=== PATIENT | female | born 1990 | race Caucasian/White ===

== ENCOUNTER 2018-12-02 12:17 | Inpatient (IN) | payer OTHER ==
[~2018-12-02] VITALS: Ht 162.6 cm; Wt 95.0 kg
[~2018-12-02 12:17] MED LIST: CALC500O PO; FERR325T5 PO; PREN-93 PO
[2018-12-02 12:53] VITALS: Ht 162.6 cm; Wt 95.0 kg
--- NOTE | 2018-12-02 14:13 | HP ---
Date/Time of Note Date/Time of Note DATE: 12/02/18 TIME: 14:11 OB - History Hx of Present Free Text/Dictation 28-year-old female 2 para 1 at 40 weeks gestation admitted for elective induction Last Menstrual Period: Feb 25, 2018 Estimated Due Date: Dec 02, 2018 : 2 Para: 1 Care: Good Care Ultrasounds: Normal mid trimester US Obstetrical Complications: None Medical Complications: None Past Family/Social History * Past Medical, Surgical, Family and Obstetric Histories reviewed from chart. Blood Type: O+ Rubella: immune RPR/VDRL: Negative GBS Status: Negative HBsAG: Negative OB Admission Exam Physical Exam HEENT: WNL Heart: Rhythm Normal Lungs: Clear, Equal Abdomen: WNL Extremities: Normal Reflexes: Normal Cervical Dilatation: Fingertip Effacement: 0% Station: -3 Membranes: Intact Heart Rate: 140's Accelerations: Accelerations Present Decelerations: No Decelerations Varibility: Marked Contractions on Admission: None OB Assessment/Plan Reason for admission: induction of labor Other Assessment: 40 weeks gestation Admitted for elective induction Other plan: Start induction using Cytotec EVETTE NEUMANN MD Dec 02, 2018 14:13
--- NOTE | 2018-12-02 14:43 | TRIAGE ---
OB Triage Datetime Report Generated by CPN: 12/02/2018 14:43 Datetime: 12/02/2018 14:01 Stage of : OB Triage Datetime: 12/02/2018 14:00 Stage of : OB Triage Labor Evaluation Frequency: X1 Monitor Mode: External Quality: Mild Pattern: Normal: <= 5 Contractions in 10 Minutes Resting Tone Stamps: Relaxed Heart Rate FHR Baseline Rate: 125 Monitor Mode: External US Variability: Moderate 6-25 bpm Accelerations: 15X15 Decelerations: None Category: Category I Pain Assessment Pain Scale: 3 Pain Presence: Chronic Pain Type: Sharp Pain Location: Perineum Pain Goal: 6 Exam By: JENIFER CARDONA Membrane Status: Intact Datetime: 12/02/2018 12:50 Stage of : OB Triage Labor Evaluation Frequency: X1 Monitor Mode: External Quality: Mild Pattern: Normal: <= 5 Contractions in 10 Minutes Resting Tone Stamps: Relaxed Heart Rate FHR Baseline Rate: 125 Monitor Mode: External US Variability: Moderate 6-25 bpm Accelerations: 15X15 Decelerations: None Category: Category I Pain Assessment Pain Scale: 3 Pain Presence: Chronic Pain Type: Sharp Pain Location: Perineum Pain Goal: 6 Vaginal Exam Dilatation (cms): 0.0 Effacement (%): 0 Station: -3 Exam By: JENIFER CARDONA Membrane Status: Intact Datetime: 12/02/2018 12:29 Vaginal Exam Dilatation (cms): 0.5 Effacement (%): 0 Station: -4 Exam By: JENIFER CARDONA Vaginal Bleeding: None Cervix, Consistency: Soft Cervix, Position: Midposition Presentation 'A': Cephalic Datetime: 12/02/2018 12:23 Stage of : OB Triage Assessment Type: Triage Maternal Assessment Level of Consciousness: Fully Conscious DTR's/Clonus: DTRs 2+; No Clonus Headache: Denies Blurred Vision: No Respiratory Effort: Unlabored; Regular Rhythm; Equal Expansion Breath Sounds, Left: Clear and Equal Breath Sounds, Right: Clear and Equal Nausea/Vomiting: Denies RUQ Epigastric Pain: Denies Lower Extremities Edema: None Degree: None Upper Extremities Edema: None Degree: None Facial Edema: None Fall Risk Assessment History of Falling: (0) No Secondary Diagnosis: (0) No Ambulatory Aid: (0) Bedrest/Nurse Assist IV Therapy: (0) No Gait: (0) Normal/Bedrest/Immobile Mental Status: (0) Oriented to Own Ability Fall Score: 0 Fall Risk Score Definition: No Risk: No action required Datetime: 12/02/2018 12:13 Time of Arrival: 12/02/2018 14:01 EGA: 40.0 Arrived By: Ambulatory Arrived From: Office Chief Complaint: PT CAME IN FROM [facility] OFFICE FOR NST AND BPP FOR POST DATES AND PT C/O VAGINAL PRESS URE Movement: Present Contractions: Denies/Absent Rupture of Membranes: Denies Vaginal Discharge: Denies Recent Sexual Intercouse: Denies Abdominal Trauma: Not Applicable Additional Patient Complaints: NONE Time Provider Notified: 12/02/2018 12:25 Provider Notified: ZO Initial Plan: NST, BPP, EFW Datetime: 10/31/2018 11:17 Pattern: Normal: <= 5 Contractions in 10 Minutes Resting Tone Stamps: Relaxed Contraction Comments: MILD IRRITABILITY Heart Rate FHR Baseline Rate: 125 Monitor Mode: External US FHR Baseline Changes: No Baseline Change Variability: Moderate 6-25 bpm Accelerations: 15X15 Decelerations: None Category: Category I Datetime: 10/31/2018 09:49 Stage of : OB Triage Assessment Type: Triage Maternal Assessment Level of Consciousness: Fully Conscious DTR's/Clonus: DTRs 2+; No Clonus Headache: Denies Blurred Vision: No Respiratory Effort: Unlabored; Regular Rhythm; Equal Expansion Breath Sounds, Left: Clear and Equal Breath Sounds, Right: Clear and Equal Nausea/Vomiting: Denies RUQ Epigastric Pain: Denies Lower Extremities Edema: None Upper Extremities Edema: None Facial Edema: None Temperature Route: Axillary Fall Risk Assessment History of Falling: (0) No Secondary Diagnosis: (0) No Ambulatory Aid: (0) Bedrest/Nurse Assist IV Therapy: (0) No Gait: (0) Normal/Bedrest/Immobile Mental Status: (0) Oriented to Own Ability Fall Score: 0 Fall Risk Score Definition: No Risk: No action required Pain Assessment Pain Scale: 0 Pain Presence: None/Denies Pain Type: N/A Pain Goal: 7 Datetime: 10/31/2018 09:48 EGA: 35.3 Datetime: 10/31/2018 09:44 Stage of : OB Triage Time of Arrival: 10/31/2018 09:26 Arrived By: Ambulatory Arrived From: Office Chief Complaint: Fall yesterday-pain on lower back and sacral area Movement: Present Contractions: Denies/Absent Rupture of Membranes: Denies Vaginal Bleeding: None Vaginal Discharge: Denies Recent Sexual Intercouse: Denies Abdominal Trauma: Fall Patient Complaints: Back Pain Initial Plan: NST, BPP Temperature Route: Oral Datetime: 10/31/2018 09:42 Stage of : OB Triage
[2018-12-02] MEDS: LACTATED RINGER'S 1,000 ML IV SCH (18:29)
[2018-12-02] MEDS ORDERED: LIDOCAINE 1% (MPF) 30 ML INJ INJ PRN (18:30)
[2018-12-02] MEDS ORDERED: BUTORPHANOL 2 MG INJ IV PRN (18:30)
[2018-12-02] MEDS ORDERED: MISOPROSTOL 50 MCG CAPSULE VAG ONE (18:30)
[2018-12-02] MEDS ORDERED: OXYTOCIN 30 UNITS/LR 500 ML IV PRN (18:30)
[2018-12-02] MEDS ORDERED: OXYTOCIN 30 UNITS/LR 500 ML IV SCH ×3 (18:30)
[2018-12-02] MEDS ORDERED: METHYLERGONOVINE 0.2 MG INJ IM PRN (18:30)
[2018-12-02] MEDS ORDERED: CARBOPROST 250 MCG INJ IM PRN (18:30)
[2018-12-02] MEDS ORDERED: MISOPROSTOL 200 MCG TAB PR PRN (18:30)
[2018-12-02] MEDS: MISOPROSTOL 50 MCG CAPSULE PO SCH ×2 (18:52→22:55)
[2018-12-03] MEDS: LACTATED RINGER'S 1,000 ML IV SCH ×3 (01:15→03:13)
--- NOTE | 2018-12-03 02:16 | PREAC ---
Date/Time of Note Date/Time of Note DATE: 12/03/18 TIME: 02:15 Anesthesia Eval and Record Evaluation Time Pre-Procedure Interview DATE: 12/03/18 TIME: 02:15 Age 28 Sex female NPO: 8 hrs Preoperative diagnosis intrauterine Planned procedure labor epidural Past Medical History Past Medical History: Includes : : (2), Para: (1), Gestational age: (40.1) Surgery & Anesthesia Issues No known issue Meds Anticoagulation: No Beta Jolynn within 24 hr: No Reason Beta Jolynn not given: Pt. not on B-Jolynn Reported Medications Calcium Carbonate (Calcium Carbonate) 500 Mg/5 Ml Oral.susp, 500 MG PO ONCE 10/31/18 Ferrous Sulfate (Ferrous Sulfate) 325 Mg Tablet.dr, 325 MG PO 10/31/18 Vit No.124/Iron/FA ( Vitamin Tablet) 1 Each Tablet, 1 EACH PO, TAB 10/31/18 Current Medications Lactated Ringer's 1,000 ml @ 125 mls/hr Q8H IV Last administered on 12/03/18at 01:15; Admin Dose 125 MLS/HR; Start 12/02/18 at 18:18 Butorphanol Tartrate (Stadol) 2 mg Q2H PRN IV .PAIN; Start 12/02/18 at 18:30 Lidocaine (Xylocaine 1% (Mpf)) 30 ml ONCE PRN INJ .EPISIOTOMY; Start 12/02/18 at 18:30 Oxytocin/Lactated Ringer's 500 ml @ 500 mls/hr ONCE POST IV ; Start 12/02/18 at 18:30 Oxytocin/Lactated Ringer's 500 ml @ 125 mls/hr POST IV ; Start 12/02/18 at 18:30 Oxytocin/Lactated Ringer's 500 ml @ 0 mls/hr ONCE PRN IV .VAGINAL BLEEDING; Start 12/02/18 at 18:30 Methylergonovine Maleate (Methergine) 0.2 mg ONCE PRN IM .VAGINAL BLEEDING; Start 12/02/18 at 18:30 Carboprost Tromethamine (Hemabate) 250 mcg ONCE PRN IM .VAGINAL BLEEDING; Start 12/02/18 at 18:30 Misoprostol (Cytotec) 1,000 mcg ONCE PRN NV .VAGINAL BLEEDING; Start 12/02/18 at 18:30 Oxytocin/Lactated Ringer's 500 ml @ 0 mls/hr FOR INDUCTION IV ; Start 12/02/18 at 18:30 Misoprostol (Cytotec 50 Mcg Capsule) 50 mcg Q4 PO Last administered on 12/02/18at 22:55; Admin Dose 50 MCG; Start 12/02/18 at 18:30 Meds reviewed: Yes Allergies Coded Allergies: No Known Drug Allergies (Verified Allergy, Unknown, 12/02/18) Allergies Reviewed: Yes Labs/Studies Labs Reviewed: Reviewed by anesthesiologist Result Diagram: 12/02/18 1820 Laboratory Tests 12/02/18 18:20 Blood Bank Test 12/02/18 18:20 Antibody Screen NEGATIVE Blood Type O POSITIVE Rh Immune Globulin Candidate NO test: N/A Pre-procedure Exam Airway: Adequate mouth opening, Adequate thyromental dist Mallampati: Mallampati II Teeth: Normal Lung: Normal Heart: Normal ASA Physical Status ASA physical status: 2 Emergency: None Planned Anesthetic Neuraxial: Epidural Planned Pain Management Epidural, Parenteral pain med Pre-operative Attestations Prior to commencing anesthesia and surgery, the patient was re-evaluated, there was verification of: *The patient's identity *The results of appropriate recent lab work and preoperative vital signs *The above evaluation not changing prior to induction *Anesthetic plan, risk benefits, alternative and complications discussed with patient/family; questions answered; patient/family understands, accepts and w ishes to proceed. TAYLOR REIS MD Dec 03, 2018 02:16
[2018-12-03] MEDS ORDERED: ONDANSETRON 4 MG INJ IV PRN (02:30)
[2018-12-03] MEDS ORDERED: FENTAnyl 2MCG/ML-ROPIV 0.2% 100 ML BAG EPI SCH (02:30)
[2018-12-03] MEDS ORDERED: NALOXONE (0.4 MG/ML) INJ IV PRN (02:30)
[2018-12-03] MEDS ORDERED: DIPHENHYDRAMINE 50 MG INJ IV PRN (02:30)
--- NOTE | 2018-12-03 03:06 | PAC ---
Date/Time of Note Date/Time of Note DATE: 12/03/18 TIME: 03:06 Post-Anesthesia Notes Post-Anesthesia Note Activity: WNL Respiratory function: WNL Cardiovascular function: WNL Mental status: Baseline Pain reasonably controlled: Yes Hydration appropriate: Yes Nausea/Vomiting absent: Yes Comments BP: 100/59 HR: 76 RR: 16 T: 98 SaO2: 99% TAYLOR REIS MD Dec 03, 2018 03:06
[2018-12-03] MEDS: MISOPROSTOL 50 MCG CAPSULE PO SCH ×3 (04:15→08:53)
[2018-12-03] MEDS ORDERED: KETOROLAC 30 MG INJ IV STA (13:03)
--- NOTE | 2018-12-03 13:03 | LDN ---
Date/Time of Note Date/Time of Note DATE: 12/03/18 TIME: 13:00 Delivery Summary Normal spontaneous vaginal delivery of a viable over intact perineum Weeks of Gestation 40 weeks Placenta Delivered: Spontaneously, Intact & Complete Meconium: none Episiotomy: No Perineal laceration: 0 Anesthesia type: Epidural Estimated blood loss: 200 Sponge & Needle done & correct: Yes All needle counts correct: Yes Delivery Information Sex Sex: female Apgars 1 Minute: 8 5 Minute: 9 Suctioning Nose & mouth suctioned at tray: Yes Delee suction performed: No Umbilical Cord Umbilical cord with: 3 Vessels Cord presentations: nuchal cord Nuchal cord present X: 1 Cord Blood was obtained: Yes Mother & Baby Disposition Disposition Mom & Baby to Maternity; Good: Yes (Mother and baby were recovered in good condition) Mom transferred to: Other (Maternity) Baby to NICU: No EVETTE NEUMANN MD Dec 03, 2018 13:03
[2018-12-03] MEDS: LACTATED RINGER'S 1,000 ML IV* SCH ×2 (14:50→22:50)
[2018-12-03 15:00] VITALS: BP 116/59; PULSE 67; RESP 16
[2018-12-03] MEDS ORDERED: DIBUCAINE 1% 30 GM OINT TOP PRN (15:00)
[2018-12-03] MEDS ORDERED: BENZOCAINE 20% 56 ML SPRAY TOP PRN (15:00)
[2018-12-03] MEDS ORDERED: ZOLPIDEM 5 MG TAB PO PRN (15:00)
[2018-12-03] MEDS ORDERED: HYDROCODONE/APAP (5/325) TAB PO PRN ×2 (15:00)
[2018-12-03] MEDS ORDERED: CARBOPROST 250 MCG INJ IM PRN (15:00)
[2018-12-03] MEDS ORDERED: METHYLERGONOVINE 0.2 MG INJ IM PRN (15:00)
[2018-12-03] MEDS ORDERED: LANOLIN HPA 1 PKT TOP PRN (15:00)
[2018-12-03] MEDS ORDERED: OXYTOCIN 30 UNITS/LR 500 ML IV PRN (15:00)
[2018-12-03] MEDS ORDERED: WITCH HAZEL/GLYCERIN PAD PR PRN (15:00)
[2018-12-03] MEDS ORDERED: MISOPROSTOL 200 MCG TAB PR PRN (15:00)
[2018-12-03 16:00] VITALS: BP 116/59; PULSE 73; RESP 18
[2018-12-03 17:00] VITALS: BP 120/60; PULSE 77; RESP 16
[2018-12-03] MEDS: CEPHALEXIN 500 MG CAP PO SCH ×2 (18:03→23:38)
[2018-12-03] MEDS: IBUPROFEN 600 MG TAB PO SCH ×2 (18:03→23:38)
[2018-12-03 20:00] VITALS: BP 117/68; PULSE 73; RESP 20
[2018-12-03] MEDS: SENNA/DOCUSATE NA (8.6MG/50MG) TAB PO SCH (20:49)
[2018-12-03] MEDS: MAGNESIUM HYDROXIDE 30ML CUP PO SCH (20:49)
[2018-12-04 04:03] VITALS: BP 103/57; PULSE 71; RESP 18
[2018-12-04] MEDS: CEPHALEXIN 500 MG CAP PO SCH ×3 (05:42→17:51)
[2018-12-04] MEDS: IBUPROFEN 600 MG TAB PO SCH ×3 (05:42→17:52)
[2018-12-04 08:00] VITALS: BP 97/51; PULSE 69; RESP 18
[2018-12-04] MEDS: MAGNESIUM HYDROXIDE 30ML CUP PO SCH ×2 (08:29→21:59)
[2018-12-04] MEDS: SENNA/DOCUSATE NA (8.6MG/50MG) TAB PO SCH ×2 (08:29→21:59)
--- NOTE | 2018-12-04 13:59 | DS ---
Date/Time of Note Date/Time of Note Home today or next day DATE: 12/04/18 TIME: 13:58 Obstetrical Discharge Record Final Diagnosis Final Diagnosis: Term delivered Other Final Diagnosis Status post vaginal delivery Vaginal Delivery Obstetrical Delivery: Spontaneous Complications Augmentation: No Induction: Yes Condition on Discharge Physical Assessment Last Vitals: See nurse's notes Voiding: Yes Bowel Movement: Yes Breast: Soft, non-tender, Filling Fundus: Firm Abdomen and Incision: Abdomen is soft with firm fundus Episiotomy: Perineum is clean Calf Tenderness: No Patient Condition: Good EVETTE NEUMANN MD Dec 04, 2018 13:59
--- NOTE | 2018-12-04 14:02 | PD.PPDC ---
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 Provider Information Physician Information 28-year-old female had vaginal delivery Diagnosis [id number] Final Diagnosis: [id number] Status post vaginal delivery Condition [id number] Patient Condition: [id number] Good Diet [id number] Diet: Dotar0y Resume Regular Diet Activity/Restrictions [id number] Activity: [id number] Normal Activity May Shower [id number] Restrictions: [id number] Nothing in the Vagina [id number] Return to Work or School: [id number] Jan 19, 2019 Follow-up Follow-up with Physician: 2, 4, Week/Weeks Return to clinic for [id number] OB Instructions: Ciamo0d Breast Tenderness Depression Comment: Pelvic rest for 6 weeks EVETTE NEUMANN MD Dec 04, 2018 14:02
[2018-12-04] MEDS ORDERED: IBUP-1542 PO (14:03)
[2018-12-04 15:54] VITALS: BP 98/53; PULSE 68; RESP 18
[2018-12-04 19:35] VITALS: BP 103/63; PULSE 70; RESP 20
[2018-12-05] MEDS: CEPHALEXIN 500 MG CAP PO SCH ×3 (00:16→12:11)
[2018-12-05] MEDS: IBUPROFEN 600 MG TAB PO SCH ×3 (00:16→12:00)
[2018-12-05 04:45] VITALS: BP 100/58; PULSE 73; RESP 18
[2018-12-05 08:00] VITALS: BP 103/55; PULSE 81; RESP 18
[2018-12-05] MEDS ORDERED: VARICELLA VACCINE LIVE/PF 1,350 UNIT/0.5 ML ML SC* ONE (09:00)
[2018-12-05] MEDS ORDERED: DIPHTH/TET/ACEL PERTUSS (ADULT) 0.5 ML VIAL IM* ONE (09:00)
[2018-12-05] MEDS ORDERED: MEASLES,MUMPS,RUBELLA VACCINE INJ SC* ONE (09:00)
[2018-12-05] MEDS: SENNA/DOCUSATE NA (8.6MG/50MG) TAB PO SCH (10:18)
[2018-12-05] MEDS: MAGNESIUM HYDROXIDE 30ML CUP PO SCH (10:18)
== END 2018-12-05 14:40 | disposition home or self-care (01) | DRG 807 ==
LOC: OBT 12:17 → L-D 12:17 → OBT 14:01 → L-D 14:11 → PP1 12-03 15:30
PROVIDERS: ADMIT Obstetrics & Gynecology; ATTEND Obstetrics & Gynecology
PROC: 10E0XZZ Delivery of Products of Conception, External Approach (ICD-10-PCS; principal; 2018-12-03)
DX: O69.81X0 Labor and delivery complicated by cord around neck, without compression, not applicable or unspecified (principal); Z37.0 Single live birth; Z3A.40 40 weeks gestation of pregnancy
CPT/HCPCS: 62319; 76815; 76818; 85025; 85610; 85730; 86592; 86850; 86900; 86901; 87340; 90716; G0463; J2590; J3010; J7120